=== PATIENT | male | born 1985 | race Caucasian/White ===

== ENCOUNTER 2019-05-08 19:15 | Emergency (ER) | payer BC ==
[~2019-05-08] VITALS: Ht 170.2 cm; Wt 77.1 kg
[2019-05-08 19:23] VITALS: BP 136/88
--- NOTE | 2019-05-08 19:31 | NUR ---
33 YEAR OLD MALE COMPLAINS OF THROWING UP, FEVER, AND COUGH X 5 DAYS. PATIENT STATES THAT COUGH HAS YELLOW SPUTUM. LUNGS CTABL, BREATHING EVEN AND UNLABORED. PATIENT STATES EPIGASTRIC PAIN 7/10 THAT IS BURNING/PRESSURE FEELING. BOWEL SOUNDS ACTIVE X4, PAIN ON PALPATION IN UPPER ABDOMEN. PATIENT STATES HE HAS ALSO HAD A FACIAL RASH THAT STARTED WHEN THE FEVER STARTED, AND THAT IT HAS GOTTEN BETTER SINCE IT STARTED. DRY PATCHY REDNESS WITH PUSTULES NOTED AROUND MOUTH AND NOSE AT THIS TIME. PATIENT STATES HISTORY OF DIVERTICULITIS, AND HAS TAKEN ROBUTISSUM IN THE MORNING. BED IN LOWEST POSITION, LOCKED, BED RAIL UPX1.
[2019-05-08] MEDS ORDERED: NACL 0.9% 2,000 ML IV ONE (20:00)
[2019-05-08] MEDS ORDERED: ONDANSETRON 4 MG/2 ML VIAL IVP ONE ×2 (20:00→22:10)
--- NOTE | 2019-05-08 20:33 | NUR ---
PHLEB AT BEDSIDE FOR LABS.
[2019-05-08 21:05] LABS: BASOPHILS % (AUTO) 0.2 % (0.0-2.0); EOSINOPHILS % (AUTO) 0.8 % (0.0-4.0); HEMATOCRIT 43.5 % (36-52); HEMOGLOBIN 14.4 g/dL (12.0-18.0); LYMPHOCYTES # (AUTO) 1.5 K/uL (2.0-11.5); LYMPHOCYTES % (AUTO) 34.1 % (20.5-51.1); MEAN CORPUSCULAR HEMOGLOBIN 30 pg (27-31); MEAN CORPUSCULAR HGB CONC 33 g/dL (33-37); MEAN CORPUSCULAR VOLUME 89.9 fL (80-94); MONOCYTES # (AUTO) 0.8 K/uL (0.8-1.0); MONOCYTES % (AUTO) 18.3 % (1.7-9.3); NEUTROPHILS # (AUTO) 2.1 K/uL (1.8-7.7); NEUTROPHILS % (AUTO) 46.6 % (42.2-75.2); PLATELET COUNT (AUTO) 189 K/uL (140-450); RED BLOOD CELL COUNT(AUTO) 4.84 MIL/uL (4.20-6.10); RED CELL DISTRIBUTION WIDTH 12.3 % (11.6-13.7); WHITE BLOOD COUNT (AUTO) 4.5 K/uL (4.8-10.8)
[2019-05-08 21:18] LABS: ANION GAP 12.4 (8-16); CARBON DIOXIDE 29.2 mmol/L (21-32); CREATININE 0.9 mg/dL (0.7-1.3); POTASSIUM 3.6 mmol/L (3.5-5.1)
[2019-05-08 21:23] LABS: ALBUMIN 3.1 g/dL (3.4-5.0); TOTAL BILIRUBIN 0.5 mg/dL (0.0-1.0)
--- NOTE | 2019-05-08 21:51 | NUR ---
DR. LEVY AT BEDSIDE FRO ASHLEIGH.
[2019-05-08 22:18] LABS: APPEARANCE,URINE CLEAR (CLEAR); BILIRUBIN,URINE 1+ (NEGATIVE); BLOOD, URINE NEGATIVE (NEGATIVE); COLOR,URINE YELLOW (YELLOW); LEUKOCYTE ESTERASE ,URINE NEGATIVE (NEGATIVE); NITRITE, URINE NEGATIVE (NEGATIVE); PH,URINE 6.5 (5.0-9.0); UGLUCOSE NEGATIVE (NEGATIVE)
[2019-05-08 22:31] LABS: RBC,URINE 0-5 /HPF (0-5)
--- NOTE | 2019-05-08 22:58 | NUR ---
PATIENT IS THROWING UP, DR LEVY MADE AWARE
[2019-05-08] MEDS ORDERED: METOCLOPRAMIDE 10 MG/2 ML INJ VIAL IVP ONE (23:00)
[2019-05-09 01:08] VITALS: BP 122/78
--- NOTE | 2019-05-09 01:08 | NUR ---
Patient discharged with v/s stable. Written and verbal after care instructions given and explained. Patient alert, oriented and verbalized understanding of instructions. Ambulatory with steady gait. All questions addressed prior to discharge. ID band removed. Patient advised to follow up with PMD. Rx of REGLAN given. Patient educated on indication of medication including possible reaction and side effects. Opportunity to ask questions provided and answered.
== END 2019-05-09 01:08 | disposition home or self-care (01) ==
LOC: MED 19:15
DX: A08.4 Viral intestinal infection, unspecified (principal); R11.2 Nausea with vomiting, unspecified
CPT/HCPCS: 36415; 74177; 80053; 81001; 82150; 83690; 85025; 87086; 96361; 96374; 96375; 96376; 99284; J2405; J2765; Q9967